=== PATIENT | female | born 1975 | race Caucasian/White ===

== ENCOUNTER 2016-09-26 14:31 | Emergency (ER) | payer MEDICARE ==
[~2016-09-26] VITALS: Ht 167.6 cm; Wt 95.3 kg
[2016-09-26 15:06] VITALS: BP 151/68
--- NOTE | 2016-09-26 15:50 | NUR ---
Patient ambulated to bed 5.
--- NOTE | 2016-09-26 15:51 | NUR ---
41/F BIB SELF C/O R ANKLE PAIN S/P FELL DOWN FROM STAIR THE LAST STEP X 3 WKS AGO;DENIES LOC. PT STATES PAIN TO L ANKLE ; SWELLING & ABRASION TO L ANKLE NOTED AT THIS TIME AAOX4 WITH EVEN AND STEADY GAIT; LUNGS CLEAR BL; HR EVEN AND REGULAR; PT DENIES ANY FEVER, CP, SOB, OR COUGH AT THIS TIME; PATIENT STATES PAIN OF 2/10 AT THIS TIME; PATIENT POSITIONED FOR COMFORT; HOB ELEVATED; BEDRAILS UP X2; BED DOWN. ER MD MADE AWARE OF PT STATUS.
[2016-09-26 16:36] VITALS: BP 138/80
--- NOTE | 2016-09-26 16:36 | NUR ---
Patient discharged with v/s stable. Written and verbal after care instructions given and explained. Patient alert, oriented and verbalized understanding of instructions. Ambulatory with CRUTCHES . All questions addressed prior to discharge. ID band removed. Patient advised to follow up with PMD. Rx of NORCO given. Patient educated on indication of medication including possible reaction and side effects. Opportunity to ask questions provided and answered.
== END 2016-09-26 16:36 | disposition home or self-care (01) ==
LOC: MED 14:31
DX: S82.844A Nondisplaced bimalleolar fracture of right lower leg, initial encounter for closed fracture (principal); X58.XXXA Exposure to other specified factors, initial encounter; F17.200 Nicotine dependence, unspecified, uncomplicated; Y93.89 Activity, other specified; Y92.89 Other specified places as the place of occurrence of the external cause; Y99.8 Other external cause status

== ENCOUNTER 2018-09-29 19:11 | Emergency (ER) | payer BC, MEDICARE ==
[~2018-09-29] VITALS: Ht 167.6 cm; Wt 90.7 kg
[2018-09-29 19:19] VITALS: BP 139/90
--- NOTE | 2018-09-29 19:19 | NUR ---
TO BED # 12 AMBULATORY, REPORT GIVEN TO THERESE CARTER
--- NOTE | 2018-09-29 19:32 | NUR ---
BIB SELF WITH C/O PRODUCTIVE COUGH AND RUNNY NOSE X 5 DAYS. STATES INTERMITTENT HEADACHE AND DIZZINESS. STATES PAIN 4/10 AT THIS TIME. DENIES FEVER, BODY ACHES, N/V/D, SOB, OR CP AT THIS TIME.
--- NOTE | 2018-09-29 19:40 | NUR ---
XRAY AT BEDSIDE.
--- NOTE | 2018-09-29 20:55 | NUR ---
Patient discharged with v/s stable. Written and verbal after care instructions given and explained. Patient alert, oriented and verbalized understanding of instructions. Ambulatory with steady gait. All questions addressed prior to discharge. ID band removed. Patient advised to follow up with PMD. Rx of TYLENOL ES, TESSALON PERLES AND CLARITIN given. Patient educated on indication of medication including possible reaction and side effects. Opportunity to ask questions provided and answered.
[2018-09-29 20:56] VITALS: BP 133/83
== END 2018-09-29 20:55 | disposition home or self-care (01) ==
LOC: MED 19:11
DX: J06.9 Acute upper respiratory infection, unspecified (principal)
CPT/HCPCS: 71045; 87804; 99284

== ENCOUNTER 2020-01-11 02:24 | Emergency (ER) | payer BC ==
[~2020-01-11] VITALS: Ht 167.6 cm; Wt 98.9 kg
[2020-01-11 02:30] VITALS: BP 167/104
--- NOTE | 2020-01-11 02:35 | NUR ---
PT AMBULATED TO BED 7
--- NOTE | 2020-01-11 02:39 | NUR ---
44 YO F BIB SELF FOR C/C OF ALLERGIC REACTION AFTER "PERFORMING ORAL SEX ON HER WITH LUBRICATION" ABOUT 30 MIN AGO. PT STATES SHE LOST HER VOICE AFTER REACTION STARTED. PT HAS SWELLING TO NOSE, LIPS, TONGUE, AND CHEEK. PT DENIES TAKING ANY OTC MEDICATIONS. DENIES FEVER, COUGH, SOB. NKA NO MED HX NO RX
[2020-01-11] MEDS ORDERED: diphenhydrAMINE 50 MG/ML VIAL IM ONE (02:45)
[2020-01-11] MEDS ORDERED: EPINEPHrine 1:1000 - 1 MG/ML AMP IM ONE (02:45)
[2020-01-11] MEDS ORDERED: DEXAMETHASONE 10 MG/ML VIAL IM ONE (02:45)
--- NOTE | 2020-01-11 03:00 | NUR ---
UPDATED PTS IN LOBBY ABOUT PT STAYING HERE FOR 6HRS FOR OBSERVATION POST IM EPI. PARTNER AGREED AND SAID HE WILL BE GOING HOME AND TO CONTACT HIM AT DISCHARGE. MILIND
--- NOTE | 2020-01-11 03:55 | NUR ---
PT AMBULATED TO RR
--- NOTE | 2020-01-11 03:58 | NUR ---
PT RETURNED FROM RR. PLACED BACK ON ACCOUNT ADVISOR.
--- NOTE | 2020-01-11 05:44 | NUR ---
PT RESTING IN BED. FACIAL/LIP SWELLING AND RASH ON ARMS AND NECK HAS GONE DOWN. [employer] PRINCIPAL IN PLACE. BED LOCKED AND IN LOWEST POSITION.
--- NOTE | 2020-01-11 07:13 | NUR ---
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
[2020-01-11 07:18] VITALS: BP 136/79
--- NOTE | 2020-01-11 07:18 | NUR ---
Patient discharged with v/s stable. Written and verbal after care instructions given and explained. Patient alert, oriented and verbalized understanding of instructions. Ambulatory with steady gait. All questions addressed prior to discharge. ID band removed. Patient advised to follow up with PMD. Rx of EPIPEN given. Patient educated on indication of medication including possible reaction and side effects. Opportunity to ask questions provided and answered.
== END 2020-01-11 07:18 | disposition home or self-care (01) ==
LOC: MED 02:24
DX: T78.2XXA Anaphylactic shock, unspecified, initial encounter (principal)
CPT/HCPCS: 96372; 99285; J0171; J1100; J1200

== ENCOUNTER 2022-05-26 23:15 | Emergency (ER) | payer SELFPAY ==
[~2022-05-26] VITALS: Ht 170.2 cm; Wt 95.3 kg
[2022-05-26 23:34] VITALS: BP 170/80
--- NOTE | 2022-05-26 23:37 | NUR ---
TO LOBBY A/W BED AMBULATORY
--- NOTE | 2022-05-26 23:42 | NUR ---
Patient being evaluated by physician
[2022-05-26 23:47] VITALS: BP 170/80
--- NOTE | 2022-05-26 23:55 | NUR ---
PT TAKEN TO RADIOLOGY
[2022-05-27] LABS: BASOPHILS # (AUTO) 0.1 K/uL (0.00-0.22); EOSINOPHILS # (AUTO) 0.2 K/uL (0-0.4); EOSINOPHILS % (AUTO) 2.1 % (0.0-4.0); HEMOGLOBIN 11.6 g/dL (12.0-16.0); LYMPHOCYTES # (AUTO) 3.1 K/uL (2.5-16.5); LYMPHOCYTES % (AUTO) 29.9 % (20.5-51.1); MEAN CORPUSCULAR HEMOGLOBIN 21 pg (27-31); MEAN CORPUSCULAR HGB CONC 32 g/dL (33-37); MONOCYTES # (AUTO) 0.6 K/uL (0.8-1.0); MONOCYTES % (AUTO) 6.1 % (1.7-9.3); NEUTROPHILS # (AUTO) 6.3 K/uL (1.8-7.7); NEUTROPHILS % (AUTO) 60.9 % (42.2-75.2); PLATELET COUNT (AUTO) 341 K/uL (140-450); RED BLOOD CELL COUNT(AUTO) 5.46 MIL/uL (4.20-5.40); RED CELL DISTRIBUTION WIDTH 16.5 % (11.6-13.7); WHITE BLOOD COUNT (AUTO) 10.4 K/uL (4.8-10.8)
[2022-05-27 00:20] LABS: ALBUMIN 3.6 g/dL (3.4-5.0); CARBON DIOXIDE 27.8 mmol/L (21-32); CREATININE 0.8 mg/dL (0.6-1.3); POTASSIUM 3.8 mmol/L (3.5-5.1); TOTAL BILIRUBIN 0.2 mg/dL (0.0-1.0)
[2022-05-27] MEDS ORDERED: KETOROLAC 30 MG/ML VIAL IM ONE (00:40)
[2022-05-27] MEDS ORDERED: BENZ100C6 PO (01:17)
[2022-05-27] MEDS ORDERED: IBUP-2213 PO (01:17)
--- NOTE | 2022-05-27 01:23 | NUR ---
Patient discharged with v/s stable. Written and verbal after care instructions given and explained. Patient alert, oriented and verbalized understanding of instructions. Ambulatory with steady gait. All questions addressed prior to discharge. ID band removed. Patient advised to follow up with PMD. Rx of BENZONATATE IBUPROFEN given.
== END 2022-05-27 01:23 | disposition home or self-care (01) ==
LOC: MED 23:15
DX: J06.9 Acute upper respiratory infection, unspecified (principal); J04.0 Acute laryngitis
CPT/HCPCS: 36415; 71046; 80053; 83880; 85025; 96372; 99284; J1885

== ENCOUNTER 2023-02-03 20:27 | Emergency (ER) | payer BC ==
[~2023-02-03] VITALS: Ht 167.6 cm; Wt 95.3 kg
[~2023-02-03 20:27] MED LIST: BENZ100C6 PO; IBUP-2213 PO
[2023-02-03 22:43] VITALS: BP_SYST 1; BP_SYST 174; BP_DIAS 89; PULSE 108; RESP 16; TEMP 97.8; O2SAT 100
[2023-02-03] MEDS ORDERED: CEPH-588 PO (23:51)
[2023-02-03] MEDS ORDERED: IBUP-2213 PO (23:51)
[2023-02-04 00:03] VITALS: BP 154/84; PULSE 108; RESP 16; TEMP 97.8; O2SAT 100
== END 2023-02-04 00:03 | disposition home or self-care (01) ==
LOC: MED 20:27
DX: L03.116 Cellulitis of left lower limb (principal); Z79.899 Other long term (current) drug therapy; Z79.1 Long term (current) use of non-steroidal anti-inflammatories (NSAID); Z79.2 Long term (current) use of antibiotics
CPT/HCPCS: 99283

== ENCOUNTER 2023-08-05 18:23 | Emergency (ER) | payer BC ==
[~2023-08-05] VITALS: Ht 167.6 cm; Wt 99.8 kg
[~2023-08-05 18:23] MED LIST changes: +CEPH-588 PO
[2023-08-05 18:39] VITALS: BP 140/70; PULSE 98; RESP 20; TEMP 98.3; O2SAT 100
[2023-08-05] MEDS ORDERED: ACYC-278 PO (18:56)
[2023-08-05] MEDS ORDERED: CEPH-588 PO (18:56)
[2023-08-05] MEDS ORDERED: IBUP-2213 PO (18:56)
[2023-08-05 19:17] VITALS: BP 135/82; PULSE 88; RESP 16; TEMP 98.3; O2SAT 100
== END 2023-08-05 19:17 | disposition home or self-care (01) ==
LOC: MED 18:23
DX: B02.9 Zoster without complications (principal); L03.114 Cellulitis of left upper limb; I10 Essential (primary) hypertension; Z79.899 Other long term (current) drug therapy
CPT/HCPCS: 99284

== ENCOUNTER 2024-01-31 04:15 | Inpatient (IN) | payer BC ==
[2024-01-31] VITALS (9 sets, daily range): BP systolic 120–146; BP diastolic 57–80; PULSE 93–117; RESP 18–26; TEMP 97.1–99.1; O2SAT 95–99
[~2024-01-31] VITALS: Ht 170.2 cm; Wt 99.8 kg
[~2024-01-31 04:15] MED LIST changes: +ACYC-278 PO
[2024-01-31] MEDS: diphenhydrAMINE 50 MG/ML VIAL IVP ONE (04:55)
[2024-01-31] MEDS: FAMOTIDINE 20 MG/2 ML VIAL IVP ONE (04:55)
[2024-01-31] MEDS: methylPREDNISolone SS 125 MG/2 ML VIAL IVP ONE (04:55)
[2024-01-31] MEDS: ALBUTEROL 0.083% 2.5 MG/3 ML NEBU INH ONE (04:56)
[2024-01-31 05:18] LABS: ANION GAP 17.2 (8-16); CALCIUM 8.3 mg/dL (8.5-10.1); CREATININE 0.9 mg/dL (0.6-1.3); POTASSIUM 3.2 mmol/L (3.5-5.1)
[2024-01-31] MEDS ORDERED: MELO-176 PO (05:20)
[2024-01-31 05:28] LABS: BILIRUBIN,DIRECT 0.1 mg/dL (0.0-0.3); TOTAL BILIRUBIN 0.3 mg/dL (0.0-1.0); TOTAL PROTEIN, SERUM 6.7 g/dL (6.4-8.2)
[2024-01-31 05:40] LABS: HEMATOCRIT 37.3 % (36-48); HEMOGLOBIN 11.6 g/dL (12.0-16.0); MEAN CORPUSCULAR HEMOGLOBIN 19 pg (27-31); MEAN CORPUSCULAR HGB CONC 31 g/dL (33-37); MEAN CORPUSCULAR VOLUME 61.3 fL (80-94); PLATELET COUNT (AUTO) 322 K/uL (140-450); RED BLOOD CELL COUNT(AUTO) 6.08 MIL/uL (4.20-5.40); RED CELL DISTRIBUTION WIDTH 20.5 % (11.6-13.7); WHITE BLOOD COUNT (AUTO) 8.7 K/uL (4.8-10.8)
[2024-01-31 05:43] LABS: FLU A ANTIGEN negative (NEGATIVE); FLU B ANTIGEN negative (NEGATIVE)
[2024-01-31 05:45] LABS: EOSINOPHILS % (MANUAL) 1 % (0-4); LYMPHOCYTES % (MANUAL) 25 % (20-46); MONOCYTES % (MANUAL) 10 % (5-12)
[2024-01-31] MEDS ORDERED: ONDANSETRON 4 MG/2 ML VIAL IVP PRN ×2 (06:00→14:40)
[2024-01-31] MEDS ORDERED: ALBUTEROL 0.083% 2.5 MG/3 ML NEBU INH PRN (06:00)
[2024-01-31 06:07] LABS: APPEARANCE,URINE SL CLOUDY (CLEAR); BILIRUBIN,URINE NEGATIVE (NEGATIVE); BLOOD, URINE 1+ (NEGATIVE); COLOR,URINE YELLOW (YELLOW); LEUKOCYTE ESTERASE ,URINE NEGATIVE (NEGATIVE); NITRITE, URINE POSITIVE (NEGATIVE); PROTEIN,URINE 1+ (NEGATIVE); UGLUCOSE 1+ (NEGATIVE); UROBILINOGEN,URINE 0.2 EU/dL (0.2 - 1)
[2024-01-31 06:19] LABS: BACTERIA,URINE >30 (MANY) /HPF (None Seen); MUCUS,URINE 1+ /LPF (None Seen); SQUAMOUS EPITHELIAL CELL,UR 4-10 (MOD) /LPF (0-3 (FEW))
[2024-01-31] MEDS ORDERED: cefTRIAXone 1,000 MG VIAL ONE (06:37)
[2024-01-31] MEDS: NACL 0.9% 1,000 ML IV SCH ×2 (06:55→16:48)
[2024-01-31] MEDS: POTASSIUM CHLORIDE 10 MEQ TABER PO ONE (06:55)
[2024-01-31 08:23] LABS: MAGNESIUM 1.7 mg/dL (1.8-2.4); PHOSPHORUS 3.1 mg/dL (2.5-4.9)
[2024-01-31] MEDS: NACL 0.9% 1,000 ML IV ONE (09:30)
[2024-01-31] MEDS ORDERED: HEPARIN PER PHARMACY MC PRN (14:35)
[2024-01-31] MEDS ORDERED: LORazepam 1 MG TAB PO PRN (14:40)
[2024-01-31 15:15] LABS: INR 0.98 (0.8-1.2); PARTIAL THROMBOPLASTIN TIME 22.1 secs (22-35.6); PROTHROMBIN TIME 10.3 secs (10.8-13.4)
[2024-01-31] MEDS ORDERED: DEXTROSE 50% 50 ML SYR IVP PRN (15:15)
[2024-01-31] MEDS: MAG SULF 2000 MG/WATER PREMIX 50 ML IV SCH (15:25)
[2024-01-31] MEDS: INSULIN LISPRO 100 UNITS/ML VIAL SUBQ SCH (15:28)
[2024-01-31] MEDS ORDERED: hePARIN / DEXT 5% PREMIX 250 ML IV SCH (15:45)
[2024-01-31 16:07] LABS: BASOPHILS % (AUTO) 0.1 % (0.0-2.0); HEMATOCRIT 33.7 % (36-48); HEMOGLOBIN 10.3 g/dL (12.0-16.0); LYMPHOCYTES # (AUTO) 0.8 K/uL (2.5-16.5); LYMPHOCYTES % (AUTO) 8.8 % (20.5-51.1); MEAN CORPUSCULAR HEMOGLOBIN 19 pg (27-31); MEAN CORPUSCULAR HGB CONC 31 g/dL (33-37); MEAN CORPUSCULAR VOLUME 61.9 fL (80-94); MONOCYTES # (AUTO) 0.1 K/uL (0.8-1.0); MONOCYTES % (AUTO) 1.4 % (1.7-9.3); NEUTROPHILS # (AUTO) 8.5 K/uL (1.8-7.7); NEUTROPHILS % (AUTO) 89.7 % (42.2-75.2); RED BLOOD CELL COUNT(AUTO) 5.44 MIL/uL (4.20-5.40); RED CELL DISTRIBUTION WIDTH 20.7 % (11.6-13.7); WHITE BLOOD COUNT (AUTO) 9.5 K/uL (4.8-10.8)
[2024-01-31 16:17] LABS: ALBUMIN 2.7 g/dL (3.4-5.0); ANION GAP 14.3 (8-16); CALCIUM 7.9 mg/dL (8.5-10.1); CARBON DIOXIDE 21.9 mmol/L (21-32); CREATININE 0.9 mg/dL (0.6-1.3); POTASSIUM 4.2 mmol/L (3.5-5.1); TOTAL BILIRUBIN 0.2 mg/dL (0.0-1.0); TOTAL PROTEIN, SERUM 6.5 g/dL (6.4-8.2)
[2024-01-31 16:22] LABS: ANISOCYTOSIS 2+; HYPOCHROMASIA 1+; OVALOCYTES 1+; PLATELET COUNT (AUTO) 290 K/uL (140-450); STOMATOCYTES 1+
[2024-01-31] MEDS: INSULIN LISPRO SLIDING SCALE 100 UNITS/ML VIAL SUBQ PRN (16:45)
[2024-01-31] MEDS: BLOOD GLUCOSE MONITORING 1 DEV DEV FS SCH (16:48)
[2024-01-31 17:05] LABS: BLOOD GAS PCO2 29.6 mmHg (35-45); BLOOD GAS PH 7.421 (7.35-7.45); BLOOD GAS PO2 99.6 mmHg (75-100)
[2024-01-31 17:06] LABS: BLOOD GAS BASE EXCESS -4.6 mmol/L (-2.0-2.0); BLOOD GAS HCO3 18.8 mmol/L (22-26); BLOOD GAS O2 SAT% 97.6 % (92.0-98.5)
[2024-01-31] MEDS: diphenhydrAMINE 50 MG/ML VIAL IVP PRN (18:42)
[2024-01-31] MEDS: POTASSIUM CHLORIDE 40 MEQ, LIDOCAINE 1% 25 MG in NACL 0.9% 250 ML IV SCH (18:44)
[2024-01-31 18:53] LABS: AMPHETAMINE, URINE POSITIVE ng/ml (NEG <=1000); BARBITURATE, URINE NEGATIVE ng/ml (NEG <=200); BENZODIAZEPINE, URINE NEGATIVE ng/mL (NEG <=200); CANNABINOID, URINE NEGATIVE ng/mL (NEG <=50); COCAINE, URINE NEGATIVE ng/mL (NEG <=300); OPIATE, URINE NEGATIVE ng/mL (NEG <=2000); PHENCYCLIDINE SCREEN,URINE NEGATIVE ng/mL (NEG <=25)
[2024-01-31] MEDS: LORazepam 1 MG TAB PO SCH (20:56)
[2024-02-01] VITALS: BP 134/64; PULSE 105; PULSE 108; RESP 18; TEMP 98.6; O2SAT 98
[2024-02-01 01:32] VITALS: O2SAT 96
[2024-02-01 04:00] VITALS: BP 119/58; PULSE 101; PULSE 103; RESP 18; TEMP 98.3; O2SAT 97
[2024-02-01 06:12] LABS: BASOPHILS # (AUTO) 0.1 K/uL (0.00-0.22); BASOPHILS % (AUTO) 0.8 % (0.0-2.0); EOSINOPHILS # (AUTO) 0.1 K/uL (0-0.4); EOSINOPHILS % (AUTO) 0.5 % (0.0-4.0); HEMATOCRIT 30.2 % (36-48); HEMOGLOBIN 9.2 g/dL (12.0-16.0); LYMPHOCYTES # (AUTO) 2.9 K/uL (2.5-16.5); LYMPHOCYTES % (AUTO) 22.7 % (20.5-51.1); MEAN CORPUSCULAR HEMOGLOBIN 19 pg (27-31); MEAN CORPUSCULAR HGB CONC 31 g/dL (33-37); MEAN CORPUSCULAR VOLUME 61.5 fL (80-94); MONOCYTES # (AUTO) 0.7 K/uL (0.8-1.0); MONOCYTES % (AUTO) 5.2 % (1.7-9.3); NEUTROPHILS % (AUTO) 70.8 % (42.2-75.2); PLATELET COUNT (AUTO) 285 K/uL (140-450); RED CELL DISTRIBUTION WIDTH 20.5 % (11.6-13.7); WHITE BLOOD COUNT (AUTO) 12.8 K/uL (4.8-10.8)
[2024-02-01 06:28] LABS: ANION GAP 12.1 (8-16); CALCIUM 7.8 mg/dL (8.5-10.1); CARBON DIOXIDE 25.1 mmol/L (21-32); CREATININE 0.7 mg/dL (0.6-1.3); POTASSIUM 4.2 mmol/L (3.5-5.1)
[2024-02-01] MEDS ORDERED: predniSONE 20 MG TAB PO SCH (09:00)
[2024-02-01] MEDS ORDERED: FOLIC ACID 1 MG TAB PO SCH (09:00)
[2024-02-01] MEDS ORDERED: THIAMINE 100 MG TAB PO SCH (09:00)
[2024-02-01] MEDS ORDERED: FAMOTIDINE 20 MG TAB PO SCH (09:00)
[2024-02-01] MEDS ORDERED: MULTIVITAMIN 1 TAB PO SCH (09:00)
== END 2024-02-01 07:20 | disposition left against medical advice (07) | DRG 556 ==
LOC: MED 04:15 → MTU 05:58 → MED 06:41
PROVIDERS: ADMIT Student in an Organized Health Care Education/Training Program; ATTEND Student in an Organized Health Care Education/Training Program
DX: M79.89 Other specified soft tissue disorders (principal); N39.0 Urinary tract infection, site not specified; E44.1 Mild protein-calorie malnutrition; T78.40XA Allergy, unspecified, initial encounter; E87.6 Hypokalemia; E83.42 Hypomagnesemia; F10.10 Alcohol abuse, uncomplicated; Z53.29 Procedure and treatment not carried out because of patient's decision for other reasons; D50.9 Iron deficiency anemia, unspecified; Z68.34 Body mass index [BMI] 34.0-34.9, adult; Y99.8 Other external cause status; Z79.899 Other long term (current) drug therapy
CPT/HCPCS: 36415; 36600; 70450; 71045; 71275; 80048; 80053; 80076; 80305; 81001; 82009; 82803; 82948; 83036; 83735; 83880; 84100; 84484; 85025; 85379; 85610; 85730; 87081; 87086; 87186; 93005; 93970; 94640; 96374; 96375; 99285; G0482; J0696; J1200; J1815; J2001; J2919; J3475; J3480; J3490; J7030; J7060; J7613; Q0092; Q9967

== ENCOUNTER 2024-02-19 13:27 | Emergency (ER) | payer BC ==
[~2024-02-19] VITALS: Ht 167.6 cm; Wt 127.0 kg
[2024-02-19] MEDS: NACL 0.9% 1,000 ML IV ONE (13:35)
[2024-02-19 13:37] VITALS: PULSE 0; TEMP 95; TEMP 97.3
[2024-02-19 13:40] VITALS: BP 190/135; PULSE 100; O2SAT 100
[2024-02-19 14:00] VITALS: O2SAT 98
[2024-02-24] MEDS: NOREPINEPHRINE 4 MG in DEXTROSE 5% 250 ML IV ONE (13:37)
== END 2024-02-19 14:53 ==
LOC: MED 13:27
DX: I46.9 Cardiac arrest, cause unspecified (principal); E11.9 Type 2 diabetes mellitus without complications; I10 Essential (primary) hypertension; F15.90 Other stimulant use, unspecified, uncomplicated
CPT/HCPCS: 31500; 71045; 92950; 92960; 93005; 96360; 99291; J3490; J7030; J7060